=== PATIENT | male | born 1995 | race Caucasian/White ===

== ENCOUNTER 2020-01-09 06:54 | Outpatient (NON) | payer SELFPAY ==
[2020-01-09 23:37] LABS: SARS-CoV-2 RNA PCR Negative
== END 2020-01-09 06:55 ==
PROVIDERS: PCP Family Medicine; Visit Provider Physician Assistant
DX: R05 Cough (principal); Z20.828 Contact with and (suspected) exposure to other viral communicable diseases
CPT/HCPCS: 87635; C9803; U0003

== ENCOUNTER 2023-01-11 11:45 | Outpatient (CLI) | payer OTHER, SELFPAY ==
[2023-01-11 13:13] LABS: SARS-CoV-2 RNA PCR Positive (Negative)
== END 2023-01-11 11:46 | disposition home or self-care (01) ==
LOC: ANHLAB 11:48
PROVIDERS: PCP Family Medicine; Visit Provider Family Medicine
DX: U07.1 COVID-19 (principal)
CPT/HCPCS: 87635

== ENCOUNTER 2023-11-02 16:18 | Outpatient (CLI) | payer OTHER, SELFPAY ==
--- NOTE | ~2023-11-02 | XR_ITS ---
Lumbosacral Spine: AP, oblique, and lateral views Clinical History: Pain Findings: The normal lordotic curve is maintained. The vertebral bodies and posterior elements are i ntact. The intervertebral disc spaces are preserved. The sacroiliac joints are normally outlined. Impression: No significant abnormality. Reviewed, dictated and finalized at [facility]. Impression: No significant abnormality.
[2023-11-02 16:49] LABS: Hemoglobin 15.3 g/dL (14.0-18.0); Mean Corpuscular Hemoglobin 29.5 pg (26-34); Mean Corpuscular Volume 86.9 fl (80-100); Platelet Count Result 322 k/mm3 (150-375); Red Blood Count 5.18 M/mm3 (4.6-6.20); Red Cell Distribution Width 12.1 % (11.5-14.5); White Blood Count 10.5 K/mm3 (4.5-10.0)
[2023-11-02 16:50] LABS: Add Urine Microscopic? NO; Appearance Urine Clear (Clear); Bilirubin Urine Negative (Negative); Blood Urine Negative (Negative); Color Urine Yellow (Yellow); Glucose Urine UA Negative (Negative); Ketones Urine Trace mg/dL (Negative); Leukocyte Esterase Ur Negative LEU/UL (Negative); Nitrate Urine Negative (Negative); Protein Urine Negative (Negative); Specific Grav Ur 1.028 (1.001-1.035)
[2023-11-02 16:58] LABS: Alanine Aminotransferase 66 U/L (6-50); Albumin Level 4.6 g/dL (3.5-5.1); Alkaline Phosphatase 84 U/L (38-126); Anion Gap 12 mmol/L (4-12); Aspartate Amino Transferase 35 U/L (17-59); Bilirubin,Total 0.8 mg/dL (0.2-1.3); Blood Urea Nitrogen 13 mg/dL (9-20); Calcium 9.2 mg/dL (8.4-10.2); Carbon Dioxide 26 mmol/L (22-30); Chloride 100 mmol/L (98-107); Estimated Glomerular Filt Rate > 60; Glucose 95 mg/dL (65-110); Potassium 3.9 mmol/L (3.4-5.0); Sodium 138 mmol/L (137-145)
[2023-11-02 18:30] LABS: Hemoglobin A1C 5.8 % (<5.7)
== END 2023-11-02 16:19 | disposition home or self-care (01) ==
LOC: ANHIMG 16:20
PROVIDERS: PCP Family Medicine; Visit Provider Physician Assistant
DX: Z00.00 Encounter for general adult medical examination without abnormal findings (principal); E66.9 Obesity, unspecified; M54.50 Low back pain, unspecified; Z91.89 Other specified personal risk factors, not elsewhere classified; Z83.3 Family history of diabetes mellitus
CPT/HCPCS: 36415; 72110; 80053; 81003; 83036; 84443; 85027

== ENCOUNTER 2024-04-14 10:30 | Outpatient (RCR) | payer OTHER, SELFPAY ==
--- NOTE | 2024-02-01 14:56 | OPREHPOC ---
Outpatient Therapy Plan of Care This is a Multidisciplinary Plan of Care that may contain components documented by all disciplines (PT, OT, and ST.) PT Problem 1 PT Problem #1 Knowledge Deficit PT Goal 1 Goal / Goal Update Pt will demo good understanding of diagnosis, influencing factors and prognosis. Pt will perform HEPs to improve core strength and lumbar stability, BLE strength and proper body mechanics, proper lifting techniques. Target Visit 12 PT Problem 2 PT Problem #2 Pain PT Goal 1 Goal / Goal Update Pt will report 2-3/10 pain at worst with standing and walking for > 30 min. Target Visit 12 PT Problem 3 PT Problem #3 Impaired Flexibility PT Goal 1 Goal / Goal Update Pt will demo 20 deg lacking or less for bilateral 90-90 hamstrings length test indicating improved flexibility. Pt will demo WNL spine and lumbar active mobility PT Problem 4 PT Problem #4 Impaired Functional Mobility PT Goal 1 Goal / Goal Update Pt will demo 1 leg standing 20 seconds or more indicating improved standing balance and tolerance . Pt will report a score of 10% or less in Modified Oswsestry Scale indicating minimal disability secondary to back pain.
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
--- NOTE | 2024-02-16 13:45 | PCPTNOTE ---
Patient called & cancelled scheduled appointment 02/14/2024 due to weather conditions.
--- NOTE | 2024-02-21 08:39 | PCPTNOTE ---
Patient called & cancelled scheduled appointment this date due to illness. Was in the emergency room last night, held therapy today.
--- NOTE | 2024-04-03 10:10 | PTOPPROG ---
Assessment and note entered by Alondra Lyons, PT Evaluation Information Assessment Status Progress Diagnosis M54.5 - Low back pain, M79.605 - Pain in left leg ICD-10 Condition Codes (PT) Radiculopathy, lumbar region M54.16,Radiculopathy, sacral and sacrococcygeal region M54.18,Pain in left hip M25.552,Pain in left knee M25.562,Pain in left ankle and joints of left foot M25.572, Abnormalities of gait and mobility R26.9,Weakness R53.1 Onset a few months ago Subjective Information Progress Note Pt reports the tingling and numbness is fading away and comes and goes depending on which side of the back is hurting . States also thinks has to do with how is pivoting at work. 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 Highest one person lift for job description is 20- 50 lbs. If is marked with a 2 person lift has to be done with a second person. 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 The other day had increased pain after a long day of pivoting and turning, used ice pack and icy/hot topical and helped. Self-perceived improvement: 75-80% Assessment PT Clinical Summary Pt has attended therapy 9 visits, in that time he feels 75-80% improved, has met multiple goals related to flexibility and range of motion. He continues to have pain and radicular symptoms though they are less intense and less often. Today it was noted he likely has a leg length discrepancy with RLE > LLE which can also effect the progression of radiculopathy and pain. He has been educated on these findings and provided an initial heel lift for the left shoe with instructions on progression. Pt is returning to a more physical position in his job which requires carrying, lifting, and pivoting with up to 50 lbs. Pt will benefit from continued therapy to monitor progression of heel lift, perform high level strengthening, and to focus on work related tasks to become more able to perofrm daily and work tasks without pain and minimize reinjury instances in the future. Plan of Care Interventions Electrical Stimulation,Gait Training,Hot Pack/Cold Pack,Manual Therapy,Mechanical Traction,Neuro Re- education,Patient/Caregiver Education,Therapeutic Activities,Therapeutic Exercise,Ultrasound,Other Other Interventions IASTM, Taping PT Services Indicated Yes Treatment Frequency and 1-2x weekly x 6 visits Duration These treatments will address the objective and functional deficits as defined above. The patient will be advanced safely and appropriately in order for the patient to progress towards his/her prior level of function. Additional exercises will be introduced and as well as a comprehensive home exercise program upon discharge, if needed, ?to ensure carryover of functional gains achieved in the clinic. This treatment plan has been reviewed and agreement upon by the patient.
--- NOTE | 2024-04-11 10:35 | PCPTNOTE ---
Patient called & cancelled scheduled appointment 04/10/24 due to illness
--- NOTE | 2024-04-28 09:01 | PCPTNOTE ---
This treatment is being continued on visit number [id number]. Please see documentation on both accounts to view progress. Completed interventions, outcomes, and problems have been marked as Inactive to facilitate the copying of the Care plan routine for recurring accounts.
--- NOTE | 2024-04-28 09:03 | PCPTNOTE ---
The treatment documented on this account is a continuation of the treatment documented on visit number [id number]. Please see documentation on both accounts to view progress. The Plan of Care has been transitioned and updated within the new V#. I have addressed and agree with the discipline specific Problems, Interventions, and Goals for the current certification period. Completed interventions, outcomes, and problems have been marked as Inactive to facilitate the copying of the Care plan routine for recurring accounts.
== END 2024-04-27 23:59 | disposition home or self-care (01) ==
LOC: ANHHIPT 10:30
PROVIDERS: PCP Family Medicine; Visit Provider Physician Assistant
DX: M54.50 Low back pain, unspecified (principal); M79.605 Pain in left leg
CPT/HCPCS: 97014; 97110; 97112; 97140; 97161; 97530; 97750; G0283

== ENCOUNTER 2024-06-26 11:00 | Outpatient (RCR) | payer OTHER, SELFPAY ==
--- NOTE | 2024-04-28 10:48 | PTOPPROG ---
Assessment and note entered by Alondra Lyons, PT Evaluation Information Assessment Status Progress Diagnosis M54.5 - Low back pain, M79.605 - Pain in left leg ICD-10 Condition Codes (PT) Radiculopathy, lumbar region M54.16,Radiculopathy, sacral and sacrococcygeal region M54.18,Pain in left hip M25.552,Pain in left knee M25.562,Pain in left ankle and joints of left foot M25.572, Abnormalities of gait and mobility R26.9,Weakness R53.1 Onset a few months ago Subjective Information Progress Note Pt reports the tingling and numbness is fading away and comes and goes depending on which side of the back is hurting. States also thinks has to do with how is pivoting at work. 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 Highest one person lift for job description is 20- 50 lbs. If is marked with a 2 person lift has to be done with a second person. 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 The other day had increased pain after a long day of pivoting and turning, used ice pack and icy/hot topical and helped. Self-perceived improvement: 75-80% Assessment PT Clinical Summary Pt has attended therapy 9 visits, in that time he feels 75-80% improved, has met multiple goals related to flexibility and range of motion. He continues to have pain and radicular symptoms though they are less intense and less often. Today it was noted he likely has a leg length discrepancy with RLE > LLE which can also effect the progression of radiculopathy and pain. He has been educated on these findings and provided an initial heel lift for the left shoe with instructions on progression. Pt is returning to a more physical position in his job which requires carrying, lifting, and pivoting with up to 50 lbs. Pt will benefit from continued therapy to monitor progression of heel lift, perform high level strengthening, and to focus on work related tasks to become more able to perform daily and work tasks without pain and minimize reinjury instances in the future. Plan of Care Interventions Electrical Stimulation,Gait Training,Hot Pack/Cold Pack,Manual Therapy,Mechanical Traction,Neuro Re- education,Patient/Caregiver Education,Therapeutic Activities,Therapeutic Exercise,Ultrasound,Other Other Interventions IASTM, Taping PT Services Indicated Yes Treatment Frequency and 1-2x weekly x 6 visits Duration These treatments will address the objective and functional deficits as defined above. The patient will be advanced safely and appropriately in order for the patient to progress towards his/her prior level of function. Additional exercises will be introduced and as well as a comprehensive home exercise program upon discharge, if needed, ?to ensure carryover of functional gains achieved in the clinic. This treatment plan has been reviewed and agreement upon by the patient.
--- NOTE | 2024-06-19 09:50 | PCPTNOTE ---
Pt called and cancelled appt due to illness
--- NOTE | 2024-06-26 14:59 | PTOPPROG ---
Assessment and note entered by Alondra Lyons, PT Evaluation Information Assessment Status Progress note Diagnosis M54.5 - Low back pain, M79.605 - Pain in left leg ICD-10 Condition Codes (PT) Radiculopathy, lumbar region M54.16,Radiculopathy, sacral and sacrococcygeal region M54.18,Pain in left hip M25.552,Pain in left knee M25.562,Pain in left ankle and joints of left foot M25.572, Abnormalities of gait and mobility R26.9,Weakness R53.1 Onset a few months ago Subjective Information Pt reports feeling 70-75% back to normal. After last therapy session felt fine. Had a lot of driving and sitting in the car shifting a lot. Was only getting out of car every 4-5 hours for gas. Had a lot of walking on vacation, and left leg started to get the numby burning feeling again. RLE got sore with the extra activity. At work has been walking a lot more in [employer] back and leg gets tired. Prior to injury his pace at this position was hit or miss but since injury doesn't feel like can keep up with the pace that is required for this position Pt reports not too bad on home exercises. Will get done every other day, like the band exercises. Reports had been wearing card board heel lift in the left shoe as well. Assessment PT Clinical Summary Pt has attended therapy with moderate consistency with exception of days he was ill. Last progress note he reported feeling 75-80% improved overall and today reports 70-75% improved. He did just have a vacation in which he had a lot of walking and had some slight increase in pain. Reports cont to have difficulty with certain aspects of his job due to the required speed of which he has to move. He continues to demonstrate good ROM, overall flexibility remains grossly unchanged. His pelvic alignment was abnormal today that corrected with muscle energy techniques. He does report has not been daily with his home exercises, and his heel lift was progressed today. 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 Plan of Care Interventions Electrical Stimulation,Gait Training,Hot Pack/Cold Pack,Manual Therapy,Mechanical Traction,Neuro Re- education,Patient/Caregiver Education,Therapeutic Activities,Therapeutic Exercise,Ultrasound,Other Other Interventions IASTM, Taping PT Services Indicated Yes Treatment Frequency and 3 visits in the next 30 days Duration These treatments will address the objective and functional deficits as defined above. The patient will be advanced safely and appropriately in order for the patient to progress towards his/her prior level of function. Additional exercises will be introduced and as well as a comprehensive home exercise program upon discharge, if needed, ?to ensure carryover of functional gains achieved in the clinic. This treatment plan has been reviewed and agreement upon by the patient.
--- NOTE | 2024-06-26 15:00 | OPREHPOC ---
Outpatient Therapy Plan of Care This is a Multidisciplinary Plan of Care that may contain components documented by all disciplines (PT, OT, and ST.) PT Problem 1 PT Problem #1 Knowledge Deficit PT Goal 1 Goal / Goal Update Pt will demo good understanding of diagnosis, influencing factors and prognosis. Pt will perform HEPs to improve core strength and lumbar stability, BLE strength and proper body mechanics, proper lifting techniques. Progress 06/26/24 Target Visit 12 Progress Partially Met PT Problem 2 PT Problem #2 Pain PT Goal 1 Goal / Goal Update Pt will report 2-3/10 pain at worst with standing and walking for > 30 min. progressed to 3-4/10 06/23/24 Target Visit 12 Progress Partially Met PT Problem 3 PT Problem #3 Impaired Flexibility PT Goal 1 Goal / Goal Update Pt will demo 20 deg lacking or less for bilateral 90-90 hamstrings length test indicating improved flexibility. Pt will demo WNL spine and lumbar active mobility Progress Met PT Problem 4 PT Problem #4 Impaired Functional Mobility PT Goal 1 Goal / Goal Update Pt will demo 1 leg standing 20 seconds or more indicating improved standing balance and tolerance . Pt will report a score of 10% or less in Modified Oswsestry Scale indicating minimal disability secondary to back pain. Progress Met PT Problem 5 PT Problem #5 Impaired Functional Mobility PT Goal 1 Goal / Goal Update Pt will demonstrate appropriate lifting techniques from varying heights and variable weight with appropriate techniques to prevent injury in the future. Target Visit 16 Progress Met PT Goal 2 Goal / Goal Update Pt will report overall improvement of 90% from beginning of therapy POC Target Visit 20
--- NOTE | 2024-07-26 14:12 | PTOPDC ---
Assessment and note entered by Alondra Lyons, PT Evaluation Information Assessment Status Discharge - Pt Not Present Diagnosis M54.5 - Low back pain, M79.605 - Pain in left leg ICD-10 Condition Codes (PT) Radiculopathy, lumbar region M54.16,Radiculopathy, sacral and sacrococcygeal region M54.18,Pain in left hip M25.552,Pain in left knee M25.562,Pain in left ankle and joints of left foot M25.572, Abnormalities of gait and mobility R26.9,Weakness R53.1 Subjective Information Pt reports feeling 70-75% back to normal. After (06/26/24) last therapy session felt fine. Had a lot of driving and sitting in the car shifting a lot. Was only getting out of car every 4-5 hours for gas. Had a lot of walking on vacation, and left leg started to get the numby burning feeling again. RLE got sore with the extra activity. At work has been walking a lot more in [employer] back and leg gets tired. Prior to injury his pace at this position was hit or miss but since injury doesn't feel like can keep up with the pace that is required for this position Pt reports not too bad on home exercises. Will get done every other day, like the band exercises. Reports had been wearing card board heel lift in the left shoe as well. Assessment PT Clinical Summary Patient did well with therapy while he was (07/26/24) attending. At his last reevaluation he reported feeling 70-75% improved overall. For the most part with his progress, his radicular pain had also resolved. However he has not returned since his last reevaluation 30 days ago. Thus his plan of care will be discharged at this time. Should he require need of therapy in the future, we would be happy to resume with an updated prescription. Plan of Care PT Services Indicated No
== END 2024-07-26 14:19 | disposition home or self-care (01) ==
LOC: ANHHIPT 11:00
PROVIDERS: PCP Family Medicine; Visit Provider Physician Assistant
DX: M54.50 Low back pain, unspecified (principal); M79.605 Pain in left leg
CPT/HCPCS: 97014; 97110; 97140; 97750; G0283